=== PATIENT | female | born 1965 | race Caucasian/White ===

== ENCOUNTER 2020-01-27 14:40 | Emergency (ER) | payer SELFPAY ==
[~2020-01-27] VITALS: Ht 162.6 cm; Wt 82.6 kg
--- NOTE | 2020-01-27 14:42 | NUR ---
DANY Anderson FROM HOME C/O PALPITATIONS. DENIES CHEST PAIN "THIS STARTED WHEN MY DOG 2 DAYS AGO". PATIENT A/OX4, BREATHING EVEN AND UNLABORED, NO SOB NOTED. NEEDS ATTENDED. KEPT COMFORTABLE. ATTACHED TO THE REFERENCE DATA EXPERT.
[2020-01-27] MEDS: IV NS 0.9% 500 ML BAG IV ONE (14:53)
--- NOTE | 2020-01-27 14:56 | NUR ---
DR. TATE AT BEDSIDE FOR EVAL.
[2020-01-27 14:58] LABS: BASOPHILS # (AUTO) 0.1 /CMM (0.0-0.2); BASOPHILS % (AUTO) 1.2 % (0.0-2.0); EOSINOPHILS % (AUTO) 1.4 % (0.0-6.0); HEMATOCRIT 42 % (33-45); HEMOGLOBIN 14.2 g/dL (11.5-14.8); LYMPHOCYTES # (AUTO) 2.9 /CMM (0.8-4.8); LYMPHOCYTES % (AUTO) 40.3 % (20.0-44.0); MEAN CORPUSCULAR HGB CONC 34 g/dl (31.0-36.0); MEAN CORPUSCULAR VOLUME 84 fL (82-100); MONOCYTES # (AUTO) 0.4 /CMM (0.1-1.30); MONOCYTES % (AUTO) 6.2 % (2.0-12.0); NEUTROPHILS # (AUTO) 3.6 /CMM (1.8-8.9); NEUTROPHILS % (AUTO) 50.9 % (43.0-81.0); PLATELET COUNT (AUTO) 347 /CMM (150-450); RED BLOOD CELL COUNT(AUTO) 5.06 MIL/uL (4.0-5.2); WHITE BLOOD COUNT (AUTO) 7.1 K/uL (4.3-11.0)
[2020-01-27 15:06] LABS: CALCIUM, SERUM 8.9 mg/dL (8.5-10.1); CARBON DIOXIDE 25 mmol/L (21-32); CHLORIDE 101 mmol/L (98-107); CREATININE 1.1 mg/dL (0.6-1.3); GLUCOSE 140 mg/dL (74-106); POTASSIUM 3.1 mmol/L (3.5-5.1); SODIUM SERUM 139 mmol/L (136-145); UREA NITROGEN, BLOOD 11 mg/dL (7-18)
[2020-01-27 15:20] LABS: B-TYPE NATRIURETIC PEPTIDE 17 PG/ML (0-125)
[2020-01-27] MEDS ORDERED: POTASSIUM CHLORIDE 20 MEQ TAB.PRT.SR PO ONE (15:58)
[2020-01-27] MEDS: POTASSIUM CHLORIDE 20 MEQ TAB.PRT.SR PO ONE (16:03)
--- NOTE | 2020-01-27 16:17 | NUR ---
IV removed. Catheter intact and site benign. Pressure and 4x4 applied to site. No bleeding noted.Patient discharged to home in stable condition. Written and verbal after care instructions given. Patient verbalizes understanding of instruction.
[2020-01-27 16:19] VITALS: BP 128/67
[2020-01-27 16:25] LABS: THYROID STIMULATING HORMONE 0.808 uIU/mL (0.358-3.74)
== END 2020-01-27 16:20 | disposition home or self-care (01) ==
LOC: ER 14:47
DX: R00.2 Palpitations (principal); F41.9 Anxiety disorder, unspecified; E87.6 Hypokalemia; R42 Dizziness and giddiness; R00.0 Tachycardia, unspecified; E03.9 Hypothyroidism, unspecified; R06.02 Shortness of breath; Z88.2 Allergy status to sulfonamides
CPT/HCPCS: 36415; 71045; 80048; 83880; 84439; 84443; 84484; 85025; 93005; 99285; J7040

== ENCOUNTER 2020-01-30 20:50 | Emergency (ER) | payer SELFPAY ==
[~2020-01-30] VITALS: Ht 162.6 cm; Wt 72.6 kg
--- NOTE | 2020-01-30 21:04 | NUR ---
pt bibs cat bite on left hand, minimal bleeding; unknown tdap to er bed 1 awaiting eval
[2020-01-30] MEDS ORDERED: TDAP [DIPH/PERTUSSIS/TET] 0.5 ML VIAL IM ONE ×2 (21:13→21:30)
[2020-01-30] MEDS ORDERED: AMOX/CLAVULANATE 875 MG TABLET ONE (21:29)
[2020-01-30] MEDS ORDERED: AMOX/CLAVULANATE 875 MG TABLET PO ONE (21:30)
[2020-01-30] MEDS ORDERED: ACETAMINOPHEN 325 MG TABLET ONE (21:40)
[2020-01-30] MEDS ORDERED: ACETAMINOPHEN 325 MG TABLET PO ONE (22:00)
--- NOTE | 2020-01-30 22:12 | NUR ---
Patient discharged to home in stable condition. Written and verbal after care instructions given. Patient verbalizes understanding of instruction.
[2020-01-30 22:13] VITALS: BP 133/85
== END 2020-01-30 22:13 | disposition home or self-care (01) ==
LOC: ER 20:52
DX: S61.230A Puncture wound without foreign body of right index finger without damage to nail, initial encounter (principal); E03.9 Hypothyroidism, unspecified; Z88.2 Allergy status to sulfonamides; W55.01XA Bitten by cat, initial encounter; Y93.89 Activity, other specified; Y92.89 Other specified places as the place of occurrence of the external cause; Y99.8 Other external cause status
CPT/HCPCS: 90715

== ENCOUNTER 2020-02-07 14:55 | Emergency (ER) | payer SELFPAY ==
[~2020-02-07] VITALS: Ht 162.6 cm; Wt 76.2 kg
[2020-02-07 15:10] VITALS: BP 130/76
--- NOTE | 2020-02-07 16:05 | NUR ---
AT BEDSIDE FOR EVAL.
--- NOTE | 2020-02-07 16:19 | NUR ---
RADIO COMMENTATOR AT BEDSIDE FOR XRAY.
--- NOTE | 2020-02-07 17:31 | NUR ---
Patient discharged to home in stable condition. Written and verbal after care instructions given. Patient verbalizes understanding of instruction.
== END 2020-02-07 17:33 | disposition home or self-care (01) ==
LOC: ER 14:58
DX: S61.254A Open bite of right ring finger without damage to nail, initial encounter (principal); E03.9 Hypothyroidism, unspecified; Z88.2 Allergy status to sulfonamides; W55.01XA Bitten by cat, initial encounter; Y93.89 Activity, other specified; Y92.89 Other specified places as the place of occurrence of the external cause; Y99.8 Other external cause status
CPT/HCPCS: 73140-TC